=== PATIENT | male | born 2005 | race Caucasian/White ===

== ENCOUNTER 2023-09-06 08:48 | Emergency (ER) | payer SELFPAY ==
[2023-09-06] MEDS: Sodium Chloride 0.9% 1,000 ML IV ONE (10:12)
[2023-09-06] MEDS: Sodium Chloride 0.9% 2.5 ML Syringe FLUSH PRN (10:12)
[2023-09-06] MEDS: Sodium Chloride 0.9% 10 ML Syringe FLUSH PRN (10:12)
[2023-09-06] MEDS: Ondansetron 4 MG/2 ML SDV IVPUSH STA (10:19)
[2023-09-06] MEDS: Ketorolac 30 MG/ML SDV IVPUSH STA (10:19)
[2023-09-06 10:22] LABS: BASOPHILS ABSOLUTE AUTO 0.07 K/uL (0.00-0.30); BASOPHILS PERCENT AUTO 0.4 % (0.0-1.0); EOSINOPHILS ABSOLUTE AUTO 0.01 K/uL (0.00-0.70); EOSINOPHILS PERCENT AUTO 0.1 % (0.0-5.0); HEMATOCRIT 47.6 % (42.0-52.0); HEMOGLOBIN 17.6 g/dL (14.0-18.0); IMMATURE GRAN ABSOLUTE AUTO 0.17 K/uL (0.00-0.05); IMMATURE GRAN PERCENT AUTO 1.1 % (0.0-0.4); LYMPHOCYTES ABSOLUTE AUTO 1.86 K/uL (2.00-8.80); LYMPHOCYTES PERCENT AUTO 11.6 % (50.0-65.0); MEAN CORPUSCULAR HEMOGLOBIN 30.4 pg (28.0-32.0); MEAN CORPUSCULAR VOLUME 82.4 fL (83.0-99.0); MEAN PLATELET VOLUME 9.5 fL (9.4-12.4); MONOCYTES ABSOLUTE AUTO 0.98 K/uL (0.10-1.40); MONOCYTES PERCENT AUTO 6.1 % (2.0-10.0); NEUTROPHILS ABSOLUTE AUTO 12.91 K/uL (1.50-8.50); NEUTROPHILS PERCENT AUTO 80.7 % (35.0-45.0); PLATELET COUNT,PLT 295 K/uL (150-400); RED BLOOD CELL COUNT 5.78 M/uL (4.52-5.90)
[2023-09-06 10:43] LABS: A/G RATIO 1.3 (0.9-1.6); ALBUMIN 4.8 g/dL (3.4-5.0); BILIRUBIN TOTAL 1.2 mg/dL (0.2-1.0); CALCIUM 9.3 mg/dL (8.5-10.1); CARBON DIOXIDE,CO2 20.6 mmol/L (21.0-32.0); CREATININE 0.8 mg/dL (0.8-1.3); EST CRCL DRUG DOSING (CG) 153.35 mL/min; POTASSIUM,K 4.1 mmol/L (3.5-5.1); PROTEIN TOTAL,TP 8.4 g/dL (6.4-8.2)
[2023-09-06] MEDS: Sodium Chloride 0.9% 1,000 ML IV STA (10:54)
[2023-09-06] MEDS: Morphine 4 MG/ML Syringe IVPUSH STA (11:04)
[2023-09-06] MEDS: Iopamidol 755 MG/ML 500 ML Multipack Bottle IVPUSH STA (11:35)
== END 2023-09-06 13:21 | disposition home or self-care (01) ==
LOC: MW.ED 08:48
DX: K52.9 Noninfective gastroenteritis and colitis, unspecified (principal); Z75.8 Other problems related to medical facilities and other health care; Z79.899 Other long term (current) drug therapy
CPT/HCPCS: 36415; 74177; 80053; 83690; 85025; 96361; 96374; 96375; 99284; J1885; J2270; J2405; J3490; J7030; Q9967